=== PATIENT | male | born 1995 | race Caucasian/White ===

== ENCOUNTER 2021-06-21 23:07 | Emergency (ER) | payer BC, SELFPAY ==
[2021-06-21 23:19] VITALS: BP 164/112; PULSE 63; RESP 18; TEMP 36.7; O2SAT 99; BMI 31.4
--- NOTE | 2021-06-21 23:26 | CT_ITS ---
PROCEDURE INFORMATION: Exam: CT Abdomen And Pelvis With Contrast Exam date and time: 06/21/2021 11:26 PM Age: 25 years old Clinical indication: Vomiting; Abdominal pain; Localized; Left lower quadrant (llq); Patient HX: Llq pain with votiming for 7hrs; Additional info: Abd pain TECHNIQUE: Imaging protocol: Computed tomography of the abdomen and pelvis with contrast. Radiation optimization: All CT scans at this facility use at least one of these dose optimization techniques: automated exposure control; mA and/or kV adjustment per patient size (includes targeted exams where dose is matched to clinical indication); or iterative reconstruction. Contrast material: ISOVUE; Contrast volume: 75 ml; Contrast route: IV; COMPARISON: No relevant prior studies available. FINDINGS: Liver: Unremarkable. No definable mass or enhancing hepatic lesion. Gallbladder and bile ducts: Normal. No calcified stones. No ductal dilation. Pancreas: Normal. No ductal dilation. Spleen: Normal. No splenomegaly. Adrenal glands: Normal. No mass. Kidneys and ureters: Mild left hydroureteronephrosis noted proximal to an obstructing 3 mm ureteral stone which is located about 6 cm from the UPJ. Stomach and bowel: Unremarkable. No obstruction. No mucosal thickening. Appendix: The appendix is visualized and appears unremarkable. Intraperitoneal space: Unremarkable. No free air. No significant fluid collection. Vasculature: Unremarkable. No abdominal aortic aneurysm. Lymph nodes: Unremarkable. No enlarged lymph nodes. Urinary bladder: Unremarkable as visualized. Reproductive: Unremarkable as visualized. Bones/joints: Unremarkable. No acute fracture. Soft tissues: Unremarkable. IMPRESSION: Mild left hydroureteronephrosis noted proximal to an obstructing 3 mm ureteral stone which is located about 6 cm from the UPJ.
[2021-06-21 23:33] LABS: Microscopic, Urine URINE MICROSCOPIC (MICROSCOPIC)
[2021-06-21 23:42] LABS: Appearance,Urine SL CLOUDY (Clear); Bilirubin,Urine Negative (Negative); Blood, Urine 3+ (Negative); Glucose,Urine (UA) Negative (Negative); Ketones,Urine Negative (Negative); Leukocyte Esterase,Urine Negative (Negative); Nitrate,Urine Negative (Negative); PH,Urine 7.5 (5.0-8.5); Protein,Urine Negative (Negative); Urobilinogen,Urine 0.2 EU/dl (0.2)
[2021-06-21 23:43] LABS: Chloride 102 mmol/L (98-107); Potassium 3.8 mmoL/L (3.5-5.1); Sodium 141 mmol/L (136-145)
[2021-06-21 23:46] LABS: Alanine Aminotransferase 80 U/L (12-78); Albumin Level 4.9 g/dl (3.5-5.0); Albumin/Globulin Ratio 1.6 (1.1-1.8); Alkaline Phosphatase 93 U/L (38-126); Amylase 90 U/L (30-110); Anion Gap 15.8 mEq/L (5-15); Aspartate Amino Transferase 40 U/L (17-59); Bilirubin,Total 0.4 mg/dl (0.2-1.3); Blood Urea Nitrogen 14 mg/dl (9-20); Calcium 9.5 mg/dl (8.4-10.2); Carbon Dioxide 27 mmol/L (22.0-30.0); Creatinine Clearance Estimated 178 mL/min (50-200); Estimated Glomerular Filt Rate 101 ml/min (>60); GFR (African American) 122 ML/MIN (>60); Globulin 3.1 g/dL (1.3-3.2); Glucose 112 mg/dl (74-100); Lipase 99 U/L (23-300)
[2021-06-21 23:52] LABS: C-Reactive Protein 1.4 mg/L (0-4)
[2021-06-22] LABS: Color,Urine Dark Yellow (Yellow)
[2021-06-22 00:03] LABS: Procalcitonin 0.034 ng/mL (0.0-2.0)
[2021-06-22 00:07] LABS: Basophils # 0.1 K/mm3 (0-0.2); Basophils % 0.6 % (0.1-2.0); Eosinophils # 0.6 K/mm3 (0.0-0.4); Eosinophils % 4.7 % (0.1-12.0); Hematocrit 46.1 % (42.0-52.0); Hemoglobin 15.9 g/dL (14.1-18.0); Lymphocytes # 1.5 K/mm3 (0.7-4.5); Lymphocytes % 13.2 % (10-50); Mean Corpuscular HGB Conc 34.4 g/dL (31.8-35.4); Mean Corpuscular Hemoglobin 29.3 pg (27.0-31.2); Mean Corpuscular Volume 85.1 fl (80-94); Mean Platelet Volume 8.6 fl (7.4-10.4); Monocytes # 0.7 K/mm3 (0.1-1.0); Monocytes % 5.7 % (1.7-9.3); Neutrophils # 8.9 K/mm3 (1.8-7.8); Neutrophils % 75.8 % (37.0-80.0); Platelet Count 290 K/mm3 (142-424); Red Blood Count 5.41 M/mm3 (4.60-6.20); Red Cell Distribution Width 13.8 % (11.5-17.5); White Blood Count 11.7 K/mm3 (4.8-10.8)
--- NOTE | 2021-06-22 00:20 | [facility].EDNVD ---
ED Disposition Clinical Impression: Renal colic on left side Disposition: Home, Self-Care Condition on Discharge: Good Instructions: DI for Kidney Stones Additional Instructions: see urology for follow up Prescriptions: Tamsulosin HCl [Flomax 0.4mg capsule] 0.4 mg PO HS #10 cap Prescription Printed Referrals: Provider,MD Sommer [Primary Care Provider] - Artemio Benson MD [Staff Physician] - - Critical Care Critical Care Time: No Attestation: On 06/21/21, the high probability of a clinically significant, sudden or life threatening deterioration of the following system(s) required my full and direct attention, intervention and personal management. The time I documented below is in addition to time spent performing reported procedures but includes the following listed in this critical care notation. Medical Decision Making - Medical Records Medical records reviewed: Yes: I reviewed the patient's medical records. - Daniel Inquiry Pt receiving controlled substance: No Vital Signs: 06/21/21 23:19 Temperature 98.0 F Temperature Source Oral Pulse Rate [Right Brachial] 63 Respiratory Rate 18 Blood Pressure [Right Arm] 164/112 H Blood Pressure Mean [Right Arm] 129 Blood Pressure Source [Right Arm] Automatic Cuff Blood Pressure Position [Right Arm] Sitting 02 Sat by Pulse Oximetry 99 Oxygen Delivery Method Room Air - Lab Data Lab results reviewed: Yes: I reviewed the patient's lab results. Lab Results 06/21/21 23:19: Urine Color Dark yellow, Urine Appearance Sl cloudy, Urine pH 7.5, Ur Specific [place] 1.020, Urine Protein Negative, Urine Glucose (UA) Negative, Urine Ketones Negative, Urine Blood 3+, Urine Nitrate Negative, Urine Bilirubin Negative, Urine Urobilinogen 0.2, Ur Leukocyte Esterase Negative, Urine RBC 20-50, Urine WBC 5-10, Ur Squamous Epith Cells Occasional, Urine Bacteria 1+ 06/21/21 23:19: WBC 11.7 H, RBC 5.41, Hgb 15.9, Hct 46.1, MCV 85.1, MCH 29.3, MCHC 34.4, RDW 13.8, Plt Count 290, MPV 8.6, Neut % (Auto) 75.8, Lymph % (Auto) 13.2, [place] % (Auto) 5.7, Eos % (Auto) 4.7, Baso % (Auto) 0.6, Neut # (Auto) 8.9 H, Lymph # (Auto) 1.5, [place] # (Auto) 0.7, Eos # (Auto) 0.6 H, Baso # (Auto) 0.1 06/21/21 23:19: Sodium 141, Potassium 3.8, Chloride 102, Carbon Dioxide 27, Anion Gap 15.8 H, BUN 14, Creatinine 0.90, Estimated Creat Clear 178, Estimated GFR 101, Est GFR ( Amer) 122, Glucose 112 H, Calcium 9.5, Total Bilirubin 0.4, AST 40, ALT 80 H, Alkaline Phosphatase 93, C-Reactive Protein 1.4, Total Protein 8.0, Albumin 4.9, Globulin 3.1, Albumin/Globulin Ratio 1.6, Amylase 90, Lipase 99 06/21/21 23:19: ESR 10 06/21/21 23:19: Procalcitonin 0.034 Result diagrams: 06/21/21 23:19 06/21/21 23:19 Orders (Tests/Meds): ED MEDICATIONS Generic Name Dose Route Start Last Admin Trade Name Freq PRN Reason Stop Dose Admin Sodium Chloride 1,000 mls @ 999 mls/hr 06/21/21 23:30 06/21/21 23:31 Sod Chlor 0.9% 1000ml Bag IV 06/22/21 00:30 999 mls/hr .Q1H1M CYRUS Administration Tamsulosin HCl 0.4 mg 06/22/21 21:00 Tamsulosin 0.4mg Capsule PO 07/22/21 20:59 HS CYRUS Discontinued Medications Generic Name Dose Route Start Last Admin Trade Name Freq PRN Reason Stop Dose Admin Acetaminophen/Codeine Phosphate 1 halley 06/22/21 01:41 Acetaminophen 300mg W/Codeine 30mg Take Home Pack (6) PO 06/22/21 01:42 ONCE ONE Iopamidol 75 ml 06/22/21 01:00 06/22/21 01:01 Iopamidol-370 (76%);100ml Bottle IV 06/22/21 01:01 75 ml ONCE ONE Administration Ketorolac Tromethamine 30 mg 06/21/21 23:29 06/21/21 23:31 Ketorolac 30mg/Ml Vial IV 06/21/21 23:30 30 mg ONCE ONE Administration Ondansetron HCl 4 mg 06/21/21 23:29 06/21/21 23:31 Ondansetron 4mg/2ml Vial IV 06/21/21 23:30 4 mg ONCE ONE Administration Sodium Chloride 10 ml 06/22/21 01:00 06/22/21 01:01 Sodium Chloride 0.9% 10ml Syr (Rad Only) IV 06/22/21 01:01 10 ml ONCE ONE Administration
[2021-06-22 00:31] LABS: Erythrocyte Sedimentation Rate 10 mm/hr (0-15)
[2021-06-22 00:40] LABS: Bacteria,Urine 1+ /lpf; RBC,Urine 20-50 #/hpf (0-3); Squamous Epithelial Cell,Urine Occasional #/hpf (0-5)
[2021-06-22 01:58] VITALS: BP 112/72; PULSE 75; RESP 16; TEMP 36.8; O2SAT 98
== END 2021-06-22 02:09 | disposition home or self-care (01) ==
PROVIDERS: Emergency Provider Emergency Medicine
DX: N20.1 Calculus of ureter (principal)
CPT/HCPCS: 74177; 80053; 81001; 82150; 83690; 84145; 85025; 85651; 86140; 99282; J2405; Q9967